=== PATIENT | male | born 1960 | race Caucasian/White ===

== ENCOUNTER → 2020-07-11 16:05 | Outpatient (BNVA) | payer OTHER, SELFPAY | PROVIDERS: Visit Provider Nurse Practitioner Family | DX: M79.621 Pain in right upper arm (principal) | CPT/HCPCS: 73060 ==

== ENCOUNTER 2020-08-08 10:12 | Outpatient (CLI) | payer OTHER, SELFPAY ==
--- NOTE | 2020-08-08 10:24 | XR_ITS ---
WS: [id number] LUMBAR SPINE TECHNIQUE: 3 views of the lumbar spine CLINICAL INFORMATION: PAIN COMPARISON: None. FINDINGS: Five [id number] lumbar vertebral bodies. Osteopenia. Prior vertebroplasty changes at L1. Interna l wedging with chronic compression at L1 with loss of approximately 40% vertebral body height. Mild r etropulsion of the posterior superior cortex. Disc space narrowing worse at L5-S1 with endplate scler osis. Moderate facet arthropathy L5-S1. Aortic calcification. XR/XR lumbar spine 2-3V* [id number] IMPRESSION: 1. Osteopenia. 2. Prior vertebroplasty changes at L1 with chronic compression anterior wedgin g. Loss of approximately 40% vertebral body height. 3. Disc space narrowing worse L5-S1. 4. Moderate facet arthropathy L5-S1.
== END 2020-08-08 10:13 | disposition home or self-care (01) ==
LOC: RAD 10:17
PROVIDERS: PCP Nurse Practitioner; Visit Provider Dermatology
DX: Z02.71 Encounter for disability determination (principal); M85.89 Other specified disorders of bone density and structure, multiple sites; M48.56XA Collapsed vertebra, not elsewhere classified, lumbar region, initial encounter for fracture; X58.XXXA Exposure to other specified factors, initial encounter; M47.817 Spondylosis without myelopathy or radiculopathy, lumbosacral region
CPT/HCPCS: 72100

== ENCOUNTER → 2020-08-29 11:20 | Outpatient (BNVA) | payer OTHER, SELFPAY | PROVIDERS: PCP Nurse Practitioner; Referring Provider Nurse Practitioner; Visit Provider Specialist | DX: M25.511 Pain in right shoulder (principal); M85.811 Other specified disorders of bone density and structure, right shoulder | CPT/HCPCS: 73030 ==

== ENCOUNTER 2020-09-11 09:10 | Outpatient (CLI) | payer OTHER, SELFPAY ==
--- NOTE | 2020-09-11 09:30 | MR_ITS ---
WS: [id number] MRI RIGHT SHOULDER HISTORY: M19.019 Primary osteoarthritis, unspecified shoulder COMPARISON: Shoulder radiograph 08/29/2020 TECHNIQUE: Multiplanar sequences of the shoulder joint are submitted. Mild hypertrophy of the AC joint. Soft tissue and bone hypertrophy with mild encroachment upon the hurt praspinatus tendon and muscle. There is a small amount of fluid in the subacromial bursa and small cy st in the distal clavicle. No os acromion. Full-thickness tear in the distal supraspinatus tendon. A small amount of fluid extends along the dis alka supraspinatus tendon. There is an insertion component of the tear. There is mild atrophy of the s upraspinatus muscle with no edema. Infraspinatus and subscapularis tendons are intact. Very slight hi gh riding humeral head. Mild loss of cartilage over the posterior lateral humeral head and also throu gh the glenoid. Biceps tendon is small caliber. No significant amount of increased fluid in the bicep s tendon sheath. There is a tear across the base of the anterior labrum. MR/MR shoulder RT wo con* [id number] IMPRESSION: 1. Complete full-thickness tear distal supraspinatus tendon with extension int erstitial and also involvement of the insertion site. 2. Mild atrophy of the supraspinatus muscle. 3. Mild AC joint arthritis. 4. Anterior labral tear. 5. Moderate degenerative changes at the humeral head and glenohumeral joint fr om arthritis. 6. No marrow edema in the distal clavicle to suggest acute fracture.
== END 2020-09-11 09:11 | disposition home or self-care (01) ==
LOC: RADSHAW 09:11
PROVIDERS: PCP Nurse Practitioner; Visit Provider Specialist
DX: M19.011 Primary osteoarthritis, right shoulder (principal); M75.121 Complete rotator cuff tear or rupture of right shoulder, not specified as traumatic; M62.521 Muscle wasting and atrophy, not elsewhere classified, right upper arm; S43.431A Superior glenoid labrum lesion of right shoulder, initial encounter; X58.XXXA Exposure to other specified factors, initial encounter
CPT/HCPCS: 73221

== ENCOUNTER 2020-11-19 10:18 | Outpatient (RCR) | payer OTHER, SELFPAY | END 2020-12-16 23:59 | disposition home or self-care (01) | LOC: SPT 10:18 | PROVIDERS: PCP Nurse Practitioner; Referring Provider Specialist; Visit Provider Specialist | DX: M19.011 Primary osteoarthritis, right shoulder (principal) | CPT/HCPCS: 97110; 97162 ==

== ENCOUNTER 2020-12-17 06:00 | Outpatient (RCR) | payer OTHER, SELFPAY | END 2021-01-13 23:59 | disposition home or self-care (01) | LOC: SPT 06:00 | PROVIDERS: PCP Nurse Practitioner; Referring Provider Specialist; Visit Provider Specialist | DX: M19.011 Primary osteoarthritis, right shoulder (principal) | CPT/HCPCS: 97110 ==

== ENCOUNTER 2021-01-03 10:44 | Outpatient (CLI) | payer OTHER, SELFPAY ==
--- NOTE | 2021-01-03 11:00 | USCV_ITS ---
Raphael Montoya Age: 60 Gender: M : 1960 Exam Date: 01/03/2021 11:05 Ordering Phys: Wili Estrada MD ([email or web address]) Technologist: Exam Location: [facility] [place] Indication: PVD RIGHT LEFT Brachial 123.00 mmHg Brachial 123.00 mmHg Pressure (mmHg) Waveform Pressure (mmHg) Waveform 160.00 S[employer]VENIR [employer]ER 163.00 166.00 DPA 159.00 1.35 Ankle/Brachial Index 1.33 148.00 Pre-Exercise Toe Pressure 119.00 1.20 Pre-Exercise Toe/Brachial Index 0.97 FINDINGS Normal resting ABIs bilaterally Normal resting TBIs bilaterally Elevated segmental pressures Post exercise DINA was 1.0 on the right side and 1.14 on the left side CONCLUSIONS No significant arterial obstruction, based on the above findings. Dr Ammon Roblero MD [facility] (Electronically Signed) Final Date: 03 January 2021 17:58 S
== END 2021-01-03 10:45 | disposition home or self-care (01) ==
LOC: RAD 10:45
PROVIDERS: PCP Nurse Practitioner; Visit Provider Internal Medicine Cardiovascular Disease
DX: I73.9 Peripheral vascular disease, unspecified (principal)
CPT/HCPCS: 93922

== ENCOUNTER 2021-01-14 06:00 | Outpatient (RCR) | payer OTHER, SELFPAY | END 2021-02-13 23:59 | disposition home or self-care (01) | LOC: SPT 06:00 | PROVIDERS: PCP Nurse Practitioner; Referring Provider Specialist; Visit Provider Specialist | DX: M19.011 Primary osteoarthritis, right shoulder (principal) | CPT/HCPCS: 97110 ==

== ENCOUNTER 2021-03-15 10:08 | Outpatient (CLI) | payer OTHER, SELFPAY ==
--- NOTE | 2021-03-15 10:16 | FL_ITS ---
WS: [id number] Exam: FL barium swallow modifd [id number] Date/Time of Exam: 03/15/2021 10:28 AM Reason For Exam: Other dysphagia Fluoroscopy time: 2.5 minutes Modified barium swallow was performed in conjunction with the speech therapy department. The patient tolerated thick liquid, thin liquid and nectar consistency barium foodstuffs without aspi ration or penetration. The patient tolerated solid barium mixture foodstuffs as well without incident . Minimal residue noted in the vallecula and perform sinuses after ingesting thin liquids. Swallowing function at the level of the oropharynx was normal. FL/FL barium swallow modifd [id number] IMPRESSION: 1. No sign of penetration or aspiration. 2. Minimal residue in the vallecula and piriform sinuses following ingestion of thin liquid barium solution. A separate report of findings by the speech therapy service will follow.
== END 2021-03-15 10:09 | disposition home or self-care (01) ==
PROVIDERS: PCP Nurse Practitioner; Visit Provider Nurse Practitioner
DX: R13.13 Dysphagia, pharyngeal phase (principal)
CPT/HCPCS: 74230; 92611

== ENCOUNTER → 2021-05-13 08:34 | Outpatient (BNVA) | payer OTHER, SELFPAY | PROVIDERS: PCP Nurse Practitioner; Visit Provider Podiatrist Foot & Ankle Surgery | DX: M79.673 Pain in unspecified foot (principal); M25.579 Pain in unspecified ankle and joints of unspecified foot; L60.3 Nail dystrophy; M76.821 Posterior tibial tendinitis, right leg; M76.822 Posterior tibial tendinitis, left leg; M77.32 Calcaneal spur, left foot | CPT/HCPCS: 73610; 73630 ==

== ENCOUNTER → 2021-09-12 15:34 | Outpatient (BNVA) | payer OTHER, SELFPAY | PROVIDERS: PCP Nurse Practitioner; Referring Provider Orthopaedic Surgery; Visit Provider Specialist | DX: G56.21 Lesion of ulnar nerve, right upper limb (principal); Z87.891 Personal history of nicotine dependence | CPT/HCPCS: 95908 ==

== ENCOUNTER 2021-09-16 10:39 | Outpatient (CLI) | payer OTHER, SELFPAY ==
--- NOTE | 2021-09-16 10:45 | MR_ITS ---
WS: [id number] MRI RIGHT SHOULDER NONCONTRAST TECHNIQUE: Sagittal T2, coronal T1, T2 and proton density imaging. Axial gradient PDE imaging. CLINICAL INFORMATION: ROTATOR CUFF TEAR,COMPLETE,RIGHT COMPARISON: September 11, 2020 FINDINGS: Some images degraded by patient motion. Moderate degenerative arthritis of the AC joint. Rotator cuff arthropathy with narrowing of the subac romial space. Moderate downsloping acromion with slight subacromial spurring. Mild edema at the AC demetrio int. Persistent high-grade tear involving the distal supraspinatus at the insertion with tendon retra ction measuring approximately 1.6 cm. Chronic thinning of the supraspinatus. Infraspinatus appears in tact. Mild chronic thinning of the infraspinatus with a very tiny insertional tear at the infraspinat us anterior insertion distally. This is unchanged from previous. Normal teres minor. Normal subscapul bonnie. Tiny biceps tendon within the bicipital groove. Thinning of the intra-articular biceps tendon which a ppears intact. Biceps labral anchor appears intact. Degenerative fraying of the glenoid labrum. No de finite labral tears visualized today. Normal middle glenohumeral ligament. Moderate degenerative arthritis glenohumeral joint. Degenerative cystic change involving the greater tuberosity. Normal bone marrow signal involving the glenoid. MR/MR shoulder RT wo con* [id number] IMPRESSION: 1. Moderate arthritis AC joint with moderate downsloping of the acromium and n arrowing of the subacromial space. Mild edema at the AC joint. 2. Again seen is the full-thickness distal insertional supraspinatus tear with tendon retraction measuring 1.6 cm 3. Chronic thinning of the supraspinatus distally. 4. Very tiny insertional tear at the infraspinatus insertion anteriorly. 5. Rotator cuff is otherwise intact. 6. Tiny but intact biceps tendon within the bicipital groove. Tiny but intact intra-articular biceps tendon. 7. Degenerative fraying of the glenoid labrum. No darryl labral tear visualized today. 8. Advanced degenerative changes at the glenohumeral joint with subchondral cy stic change at the greater tuberosity.
== END 2021-09-16 10:40 | disposition home or self-care (01) ==
PROVIDERS: PCP Nurse Practitioner; Visit Provider Orthopaedic Surgery
DX: M75.121 Complete rotator cuff tear or rupture of right shoulder, not specified as traumatic (principal); M19.011 Primary osteoarthritis, right shoulder; R60.0 Localized edema; M75.101 Unspecified rotator cuff tear or rupture of right shoulder, not specified as traumatic
CPT/HCPCS: 73221

== ENCOUNTER → 2021-11-12 08:38 | Outpatient (BNVA) | payer OTHER, SELFPAY | PROVIDERS: PCP Nurse Practitioner; Referring Provider Orthopaedic Surgery; Visit Provider Specialist | DX: G56.21 Lesion of ulnar nerve, right upper limb (principal); M75.111 Incomplete rotator cuff tear or rupture of right shoulder, not specified as traumatic | CPT/HCPCS: 95860; 99202 ==

== ENCOUNTER → 2022-08-11 09:08 | Outpatient (BNVA) | payer OTHER, SELFPAY | PROVIDERS: PCP Nurse Practitioner; Visit Provider Podiatrist Foot & Ankle Surgery | DX: L60.3 Nail dystrophy (principal); M76.829 Posterior tibial tendinitis, unspecified leg | CPT/HCPCS: 99213; 99214 ==

== ENCOUNTER → 2022-08-28 09:19 | Outpatient (BNVA) | payer OTHER, SELFPAY | PROVIDERS: PCP Nurse Practitioner; Visit Provider Podiatrist Foot & Ankle Surgery | DX: L60.0 Ingrowing nail (principal); Z01.818 Encounter for other preprocedural examination | CPT/HCPCS: 11750; 93923 ==

== ENCOUNTER → 2022-09-18 07:38 | Outpatient (BNVA) | payer OTHER, SELFPAY | PROVIDERS: PCP Nurse Practitioner; Visit Provider Podiatrist Foot & Ankle Surgery | DX: L60.0 Ingrowing nail (principal); Z98.890 Other specified postprocedural states; Z01.818 Encounter for other preprocedural examination | CPT/HCPCS: 11750; 99213 ==

== ENCOUNTER 2022-09-22 12:53 | Outpatient (CLI) | payer OTHER, SELFPAY ==
--- NOTE | 2022-09-22 13:10 | MR_ITS ---
WS: [id number] MRI LUMBAR SPINE WITH CONTRAST TECHNIQUE: Sagittal T1, T2 and STIR imaging. Axial T1 and T2 imaging. Post gadolinium imaging was obt ained. CLINICAL INFORMATION: POST LAMINECTOMY SYNDROME COMPARISON: MRI 2013 FINDINGS: Mild lumbar curve. No acute compression. Chronic anterior wedging at L1 with kyphoplasty changes. Dis c space narrowing worse L5-S1. L1-L2: Mild annular bulging. Mild facet arthropathy. Spinal canal and foramen are patent. L2-L3: No significant disc bulging. Spinal canal and foramen are patent. Mild facet arthropathy. L3-L4: Mild annular bulging. Mild facet arthropathy. Spinal canal and foramen are patent. L4-L5: Mild annular bulging with slight effacement of ventral thecal sac. Narrowing of the RIGHT suba rticular recess. Mild RIGHT and no significant LEFT foraminal narrowing. Moderate facet arthropathy. L5-S1: Mild disc bulging and osteophytic ridging. Slight effacement of ventral thecal sac. Mild to mo derate bilateral foraminal narrowing. Central disc osteophyte protrusions seen on the cervical spine geological scout imaging with mild central canal stenosis C5-C7. A few shallow central protrusions in the mid and lower thoracic spine Tiny LEFT renal cyst. MR/MR lumbar spine wo/w con [id number] IMPRESSION: 1. Chronic compression L1 vertebral body with kyphoplasty changes. 2. Disc space narrowing worse L5-S1 with mild disc bulging with slight effacem ent of the ventral thecal sac. Contact of the traversing S1 nerve roots bilater ally. Mild to moderate bilateral foraminal narrowing. 3. RIGHT eccentric disc bulging L4-L5 with mild RIGHT L4-L5 foraminal narrowin g. Slight narrowing of the RIGHT L4-L5 subarticular recess. 4. Moderate facet arthropathy L4-L5. 5. Mild to moderate central canal stenosis in the cervical spine due to small central disc osteophyte protrusions. This can be further evaluated with cervica l spine MRI.
[2022-09-22] MEDS: gadobenate dimeglumine 20 mL vial IV (13:56)
== END 2022-09-22 12:54 | disposition home or self-care (01) ==
LOC: RAD 12:54
PROVIDERS: PCP Nurse Practitioner; Visit Provider Anesthesiology
DX: M96.1 Postlaminectomy syndrome, not elsewhere classified (principal); M51.37 Other intervertebral disc degeneration, lumbosacral region; M48.07 Spinal stenosis, lumbosacral region; M51.36 Other intervertebral disc degeneration, lumbar region; M48.061 Spinal stenosis, lumbar region without neurogenic claudication; M47.816 Spondylosis without myelopathy or radiculopathy, lumbar region; M25.78 Osteophyte, vertebrae
CPT/HCPCS: 72158

== ENCOUNTER → 2022-10-02 11:08 | Outpatient (BNVA) | payer OTHER, SELFPAY | PROVIDERS: PCP Nurse Practitioner; Visit Provider Podiatrist Foot & Ankle Surgery | DX: Z98.890 Other specified postprocedural states (principal) | CPT/HCPCS: 99213 ==

== ENCOUNTER → 2022-11-21 15:03 | Outpatient (BNVA) | payer OTHER, SELFPAY | PROVIDERS: PCP Nurse Practitioner; Visit Provider Podiatrist Foot & Ankle Surgery | DX: Z98.890 Other specified postprocedural states (principal); L60.0 Ingrowing nail; E11.8 Type 2 diabetes mellitus with unspecified complications; Z79.84 Long term (current) use of oral hypoglycemic drugs | CPT/HCPCS: 99213 ==

== ENCOUNTER → 2022-11-25 09:35 | Outpatient (BNVA) | payer OTHER, SELFPAY | PROVIDERS: PCP Nurse Practitioner; Visit Provider Internal Medicine Cardiovascular Disease | DX: R55 Syncope and collapse (principal); R05.9 Cough, unspecified; I10 Essential (primary) hypertension; E11.9 Type 2 diabetes mellitus without complications; E78.5 Hyperlipidemia, unspecified; R00.2 Palpitations; F17.210 Nicotine dependence, cigarettes, uncomplicated; Z79.84 Long term (current) use of oral hypoglycemic drugs | CPT/HCPCS: 93005; 99214 ==

== ENCOUNTER 2022-12-04 14:13 | Outpatient (CLI) | payer OTHER, SELFPAY ==
--- NOTE | 2022-12-04 | MR_ITS ---
WS: [id number] MRI CERVICAL SPINE NONCONTRAST AND CONTRAST TECHNIQUE: Sagittal T1, T2 and STIR imaging. Axial T2, gradient, and fiesta imaging. Post gadolinium imaging was obtained with fat saturation technique. CLINICAL INFORMATION: RADICULAR PAIN COMPARISON: None. FINDINGS: Some images degraded by patient motion. Straightening of the normal cervical lordosis. Moderate spondylitic changes. Disc osteophyte complexe s throughout the cervical spine worse at C3-C4 C4-C5 C5-C6 and C6-C7 with small protrusions and sligh t contact of the cervical cord with central canal stenosis. Chronic biconcave compression deformity T 1. No edema. Mild anterior wedging at this level. Tiny disc protrusions in the upper thoracic spine T 2-T3 and T3-T4. C2-C3: Small amount of facet edema compatible synovitis at LEFT C2-C3. Slight periarticular edema. Mi ld facet arthropathy. Mild RIGHT greater than LEFT foraminal narrowing. Spinal canal is patent. C3-C4: Disc osteophyte complex with small central protrusion. Mild central canal stenosis. Moderate L EFT greater than RIGHT bony foraminal narrowing. Moderate LEFT facet arthropathy C4-C5: Disc osteophyte complex endplate ridging. Moderate central canal stenosis. Indentation RIGHT v entral cervical cord. Moderate to severe RIGHT and moderate LEFT bony foraminal narrowing. Moderate f acet arthropathy. C5-C6: Disc osteophyte complex with indentation on cervical cord. Moderate central canal stenosis. Mo derate to severe bilateral bony foraminal narrowing RIGHT greater than LEFT. Moderate facet arthropat hy. C6-C7: Disc osteophyte complex with central disc protrusion. Indentation on cervical cord. Moderate c entral canal stenosis. Moderate bilateral bony foraminal narrowing. Moderate facet arthropathy. C7-T1: Disc osteophyte complex with slight indentation on cervical cord. Mild central canal stenosis. Moderate to severe RIGHT and mild LEFT bony foraminal narrowing. Moderate facet arthropathy. Visualized brain stem structures: Normal. Prevertebral soft tissues: Normal. MR/MR cervical spine wo/w [id number] IMPRESSION: Some images limited by patient motion. 1. Straightening of the normal cervical lordosis. Cord signal is normal. 2. Disc osteophyte complexes with small protrusions at C3-C6 with mild to mode rate central canal stenosis worse at C4-C5, C5-C6, and C6-C7. 3. Multilevel moderate to severe bony foraminal narrowing worse at LEFT C3-C4, RIGHT C4-C5, RIGHT C5-C6, and RIGHT C7-T1. 4. Multilevel moderate facet arthropathy LEFT C3-C4, LEFT C4-C5, bilateral C5- C6. 5. Synovitis LEFT C2-C3, LEFT C3-C4 and RIGHT C5-C6 with a small amount of per iarticular and facet edema.
[2022-12-04] MEDS: gadobenate dimeglumine 20 mL vial IV (14:53)
== END 2022-12-04 14:14 | disposition home or self-care (01) ==
LOC: RAD 14:13
PROVIDERS: PCP Nurse Practitioner; Visit Provider General Practice
DX: M54.12 Radiculopathy, cervical region (principal); M25.78 Osteophyte, vertebrae; M65.88 Other synovitis and tenosynovitis, other site
CPT/HCPCS: 72156; A9577

== ENCOUNTER → 2022-12-18 11:16 | Outpatient (BNVA) | payer OTHER, SELFPAY | PROVIDERS: PCP Nurse Practitioner; Visit Provider Podiatrist Foot & Ankle Surgery | DX: L60.0 Ingrowing nail (principal); Z98.890 Other specified postprocedural states | CPT/HCPCS: 99213 ==

== ENCOUNTER 2022-12-25 09:25 | Outpatient (CLI) | payer OTHER, SELFPAY ==
--- NOTE | 2022-12-25 09:30 | USCV_ITS ---
Raphael Montoya Age: 61 Gender: M : 1960 Exam Date: 12/25/2022 09:52 Ordering Phys: Ammon Roblero MD ([email or web address]) Technologist: Exam Location: [facility] – [place] Indication: syncope BP: 118 / 69 HR: 83 Rhythm: Sinus Technical Quality: Adequate MEASUREMENTS (Male / Female) Normal Values 2D ECHO LVOT Diameter 2.0 cm LV Ejection Fraction MOD 2C 69.9 % LV Ejection Fraction 2C AL 69.4 % LA Diameter 3.8 cm Aorta at Sinotubular Diameter 3.0 cm IVC Diameter 1.3 cm M-MODE Aortic Annulus Diameter 3.4 cm LA Ao Ratio MM 1.1 MV E Point Septal Separation 0.9 cm DOPPLER AV Peak Velocity 134.0 cm/s LVOT Peak Velocity 89.0 cm/s AV Area Cont Eq vti 2.3 cm squared AV Area Cont Eq pk 2.1 cm squared MV Area PHT 5.0 cm squared Mitral E to A Ratio 0.9 MV E' Velocity 40.0 cm/s Mitral E to MV E' Ratio 8.6 Mitral E to LV E' Lateral Ratio 7.3 Mitral E to LV E' Septal Ratio 10.6 TR Peak Velocity 136.3 cm/s TR Peak Gradient 7.4 mmHg Right Atrial Pressure 3.0 mmHg Pulmonary Artery Systolic Pressu 10.4 mmHg RV Acceleration Time 0.1 s FINDINGS Left Ventricle Normal left ventricular size and systolic function, EF 71 %. No regional wall motion abnormalities. Grade I/IV diastolic dysfunction (abnormal relaxation filling pattern), normal to mildly elevated filling pressures. Right Ventricle The right ventricle is normal in size and function. Right Atrium The right atrium is normal in size. Left Atrium The left atrium is normal in size. Mitral Valve No gross abnormalities noted Aortic Valve No gross abnormalities noted Tricuspid Valve Trace tricuspid valve regurgitation. Estimated pulmonary artery pressure within normal limits Pulmonic Valve No gross abnormalities noted Pericardium Normal pericardium without effusion. Aorta Normal ascending aorta dimension. IVC Normal inferior vena cava. CONCLUSIONS Normal left ventricular size and systolic function, EF 71 %. No regional wall motion abnormalities. Grade I/IV diastolic dysfunction (abnormal relaxation filling pattern), normal to mildly elevated filling pressures. Trace tricuspid valve regurgitation. Estimated pulmonary artery pressure within normal limits. No intracardiac masses No pericardial effusion. No similar previous studies are available for comparison Dr Ammon Roblero MD [facility] (Electronically Signed) Final Date: 26 December 2022 16:44 S
== END 2022-12-25 09:26 | disposition home or self-care (01) ==
LOC: RAD 09:29
PROVIDERS: PCP Nurse Practitioner; Visit Provider Internal Medicine Cardiovascular Disease
DX: R06.09 Other forms of dyspnea (principal)
CPT/HCPCS: 93306

== ENCOUNTER → 2023-01-20 13:55 | Outpatient (BNVA) | payer OTHER, SELFPAY | PROVIDERS: PCP Nurse Practitioner; Visit Provider Internal Medicine Cardiovascular Disease | DX: E78.5 Hyperlipidemia, unspecified (principal); E11.9 Type 2 diabetes mellitus without complications; I10 Essential (primary) hypertension; F17.210 Nicotine dependence, cigarettes, uncomplicated; Z79.84 Long term (current) use of oral hypoglycemic drugs; Z79.82 Long term (current) use of aspirin; Z87.898 Personal history of other specified conditions | CPT/HCPCS: 99214 ==

== ENCOUNTER 2023-06-08 03:57 | Inpatient (IN) | payer OTHER, SELFPAY ==
[2023-06-08 03:58] VITALS: BP 138/102; PULSE 103; RESP 16; TEMP 36.8; O2SAT 95; BMI 29.0
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
[2023-06-08 04:14] LABS: Basophils # 0.1 10^3/uL (0.0-0.1); Basophils % 0.8 %; Eosinophils # 0.1 10^3/uL (0.0-0.8); Eosinophils % 1.1 %; Hematocrit 41.9 % (42.0-52.0); Hemoglobin 14.4 g/dL (11.7-16.6); Lymphocytes # 3.5 10^3/uL (0.8-4.8); Lymphocytes % 34.2 %; Mean Corpuscular HGB Conc 34.4 g/dL (30.0-36.0); Mean Corpuscular Hemoglobin 31.6 pg (28.0-34.0); Mean Corpuscular Volume 92.1 fl (80-94); Mean Platelet Volume 8.7 fL (7.4-10.4); Monocytes # 0.7 10^3/uL (0.2-0.9); Monocytes % 7.3 %; Neutrophils # 5.68 10^3/uL (1.8-7.7); Nucleated Red Blood Cells % 0 %; Platelet Count 373 10^3/cmm (130-400); Red Blood Count 4.55 10^6/uL (4.1-5.3); Red Cell Distribution Width 12.7 % (12.1-15.1); White Blood Count 10.1 10^3/uL (4.0-10.0)
[2023-06-08 04:19] LABS: Glucose Point of Care 217 mg/dL (70-110)
[2023-06-08 04:36] LABS: Alanine Aminotransferase 8 U/L (0-41); Albumin Level 4.3 g/dL (3.5-5.2); Alcohol Level 69 mg/dL (0-10); Alkaline Phosphatase 144 U/L (40-130); Anion Gap 18.7 (5-19); Aspartate Amino Transferase 19 U/L (0-40); Blood Urea Nitrogen 13 mg/dL (8-23); Carbon Dioxide 22 mmol/L (22-29); Chloride 101 mmol/L (98-107); Globulin 3.2 g/dL (1.3-4.6); Glucose 207 mg/dL (65-115); Osmolality Calculated 292 mOsm/kg (285-295); Potassium 3.7 mmol/L (3.5-5.1); Sodium 138 mmol/L (136-145); Total Bilirubin 0.3 mg/dL (0.15-1.2); Total Protein 7.5 g/dL (6.6-8.7)
--- NOTE | 2023-06-08 04:38 | PC.NURSE ---
Copy of 96 hour rights given to pt and explained fully by this RN and security. All questions answered.
[2023-06-08 04:47] LABS: Acetaminophen < 5.0 ug/mL (10-30); Salicylate < 0.3 mg/dL (3-10)
[2023-06-08 05:07] LABS: Amphetamines Screen Urine Negative (Negative); Barbiturates Screen Urine Negative (Negative); Benzodiazepines Screen Urine Negative (Negative); Cocaine Screen Urine Negative (Negative); Opiate Screen Urine Positive (Negative); PCP Screen Urine Negative (Negative); THC Screen Urine Positive (Negative)
[2023-06-08 05:20] VITALS: BP 155/88; PULSE 99; RESP 18; TEMP 36.8; O2SAT 94
[2023-06-08 05:25] VITALS: RESP 18
[2023-06-08 05:40] VITALS: BP 155/88; PULSE 99; RESP 18; TEMP 36.8; O2SAT 96
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
[2023-06-08] MEDS: nicotine 2 mg Gum BUCCAL (08:00)
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
[2023-06-08 09:45] LABS: Glucose Point of Care 251 mg/dL (70-110)
[2023-06-08 12:56] LABS: Glucose Point of Care 140 mg/dL (70-110)
[2023-06-08 14:00] VITALS: BP 155/83; PULSE 82; RESP 17; TEMP 36.8; O2SAT 96
[2023-06-08] MEDS: guaiFENesin 100 mg/5 mL UDC 10 mL 400 MG PO ×2 (14:32→20:45)
[2023-06-08] MEDS: buPROPion XL (24 HR) 300 mg Tablet PO (14:32)
[2023-06-08] MEDS: HYDROcodone-acetaminophen 5-325 mg Tablet 0.5 TAB PO (14:35)
[2023-06-08] MEDS: tamsulosin 0.4 mg Capsule PO (17:31)
[2023-06-08 19:32] VITALS: BP 160/90; PULSE 91; RESP 18; TEMP 36.8; O2SAT 98
[2023-06-08] MEDS: metformin 500 mg Tablet 1000 MG PO (20:43)
[2023-06-08] MEDS: prazosin 1 mg Capsule 3 MG PO (20:43)
[2023-06-08] MEDS: gemfibrozil 600 mg Tablet PO (20:44)
[2023-06-08] MEDS: cilostazol 100 mg Tablet 50 MG PO (20:45)
[2023-06-08] MEDS: trazodone 50 mg Tablet PO (20:49)
[2023-06-08 21:06] LABS: Glucose Point of Care 305 mg/dL (70-110)
--- NOTE | 2023-06-09 06:27 | PC.NURSE ---
Asked pt to obtain vital signs. Pt refused rolling over back to sleep. Respiration Rate 16.
[2023-06-09 07:46] LABS: Glucose Point of Care 184 mg/dL (70-110)
[2023-06-09] MEDS: cilostazol 100 mg Tablet 50 MG PO ×2 (08:32→20:15)
[2023-06-09] MEDS: metformin 500 mg Tablet 1000 MG PO ×2 (08:33→20:15)
[2023-06-09] MEDS: multivitamin therapeutic Tablet 1 TAB PO (08:33)
[2023-06-09] MEDS: thiamine 100 mg Tablet PO (08:33)
[2023-06-09] MEDS: sertraline 100 mg Tablet PO (08:33)
[2023-06-09] MEDS: folic acid 1 mg Tablet PO (08:33)
[2023-06-09] MEDS: HYDROcodone-acetaminophen 5-325 mg Tablet 0.5 TAB PO (08:33)
[2023-06-09] MEDS: aspirin 81 mg EC Tablet PO (08:33)
[2023-06-09] MEDS: buPROPion XL (24 HR) 300 mg Tablet PO (08:33)
[2023-06-09] MEDS: ropinirole 0.25 mg Tablet 0.5 MG PO (08:33)
[2023-06-09] MEDS: gemfibrozil 600 mg Tablet PO ×2 (08:35→20:15)
--- NOTE | 2023-06-09 08:37 | PC.NURSE ---
REFUSED SCHEDULED ROBITUSSIN 400 MG & ALSO REFUSED SCHEDULED BACTROBAN OINTMENT
[2023-06-09 12:21] LABS: Glucose Point of Care 191 mg/dL (70-110)
[2023-06-09 13:31] VITALS: BP 94/62; PULSE 107; RESP 16; TEMP 36.4; O2SAT 96
--- NOTE | 2023-06-09 14:04 | PC.NURSE ---
refused scheduled Robitussin
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
[2023-06-09] MEDS: tamsulosin 0.4 mg Capsule PO (17:24)
[2023-06-09 17:27] LABS: Glucose Point of Care 182 mg/dL (70-110)
[2023-06-09 20:05] LABS: Glucose Point of Care 309 mg/dL (70-110)
[2023-06-09] MEDS: prazosin 1 mg Capsule 3 MG PO (20:15)
[2023-06-09] MEDS: guaiFENesin 100 mg/5 mL UDC 10 mL 400 MG PO (20:15)
[2023-06-09 20:39] VITALS: BP 129/80; PULSE 95; RESP 17; TEMP 36.9; O2SAT 95
[2023-06-09] MEDS: hyDROXYzine 25 mg Capsule 50 MG PO (21:12)
[2023-06-09] MEDS: trazodone 50 mg Tablet PO ×2 (21:12→23:01)
[2023-06-10 06:00] VITALS: BP 111/71; PULSE 97; RESP 18; O2SAT 94
[2023-06-10 08:09] LABS: Glucose Point of Care 186 mg/dL (70-110)
[2023-06-10] MEDS: gemfibrozil 600 mg Tablet PO (09:48)
[2023-06-10] MEDS: aspirin 81 mg EC Tablet PO (09:50)
[2023-06-10] MEDS: folic acid 1 mg Tablet PO (09:50)
[2023-06-10] MEDS: buPROPion XL (24 HR) 300 mg Tablet PO (09:50)
[2023-06-10] MEDS: ropinirole 0.25 mg Tablet 0.5 MG PO (09:51)
[2023-06-10] MEDS: thiamine 100 mg Tablet PO (09:51)
[2023-06-10] MEDS: multivitamin therapeutic Tablet 1 TAB PO (09:51)
[2023-06-10] MEDS: cilostazol 100 mg Tablet 50 MG PO (09:51)
[2023-06-10] MEDS: sertraline 100 mg Tablet PO (09:51)
[2023-06-10] MEDS: metformin 500 mg Tablet 1000 MG PO (09:51)
[2023-06-10] MEDS: HYDROcodone-acetaminophen 5-325 mg Tablet 0.5 TAB PO (09:52)
[2023-06-10 12:39] LABS: Glucose Point of Care 194 mg/dL (70-110)
[2023-06-10 14:00] VITALS: BP 125/72; PULSE 98; RESP 20; TEMP 36.8; O2SAT 97
--- NOTE | 2023-06-10 15:11 | DCPLANNER ---
IMM was printed and explained and give to pt and copy put in file.
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
[2023-06-10 15:44] VITALS: BP 111/71; PULSE 97; RESP 18; O2SAT 94
== END 2023-06-10 16:00 | disposition home or self-care (01) | DRG 885 ==
LOC: ER 04:20 → NP 05:07
PROVIDERS: Admitting Provider Psychiatry & Neurology Psychiatry; Emergency Provider Emergency Medicine; PCP Nurse Practitioner; Visit Provider Psychiatry & Neurology Psychiatry
DX: F33.9 Major depressive disorder, recurrent, unspecified (principal); R45.851 Suicidal ideations; Z63.0 Problems in relationship with spouse or partner; F17.210 Nicotine dependence, cigarettes, uncomplicated; F10.20 Alcohol dependence, uncomplicated; F12.90 Cannabis use, unspecified, uncomplicated; F43.10 Post-traumatic stress disorder, unspecified; Z91.128 Patient's intentional underdosing of medication regimen for other reason; J44.9 Chronic obstructive pulmonary disease, unspecified; E11.9 Type 2 diabetes mellitus without complications; E78.5 Hyperlipidemia, unspecified; I10 Essential (primary) hypertension; Z79.84 Long term (current) use of oral hypoglycemic drugs; Z79.82 Long term (current) use of aspirin; Z79.891 Long term (current) use of opiate analgesic
CPT/HCPCS: 36416; 80053; 80306; 80307; 82962; 85025; 97150; 97165; 99238; 99285